=== PATIENT | male | born 2000 | race Two or more races ===

== ENCOUNTER 2020-02-03 10:01 | Emergency (ER) | payer OTHER ==
[2020-02-03 10:17] VITALS: BP 145/93; PULSE 130
[2020-02-03] MEDS ORDERED: Penicillin G Benzathine 1,200,000 Units/2 ML Syringe IM ONE (10:30)
--- NOTE | 2020-02-04 01:59 | EDM.PDOC ---
ED HPI GENERAL MEDICAL PROBLEM - General Chief Complaint: General Stated Complaint: POSSIBLE STREP THROAT Time Seen by Provider: 02/03/20 10:15 Source of Information: Reports: Patient History Limitations: Reports: No Limitations - History of Present Illness INITIAL COMMENTS - FREE TEXT/NARRATIVE: Pt. presents to ER with complaints of severe sore throat for 2 days. He has been experiencing fever and chills. He states that he has frequent problems with pharyngitis and has been advised to have tonsillectomy. Denies any problems breathing, swallowing, or managing his secretions. No cough or sinus congestion. Pt. denies any nausea, vomiting, or diarrhea. No bloody stools. Denies any ear pain. he states that his tonsils are enlarged, erythematous with exudates and are almost touching. Onset Date: 02/01/20 Location: Reports: Neck Quality: Reports: Ache, Sharp Severity: Moderate Associated Symptoms: Reports: Fever/Chills, Loss of Appetite, Malaise, Nausea/ Vomiting. Denies: Cough, cough w sputum Throat Pain Score (Numeric/FACES): 6 - Related Data Allergies Allergy/AdvReac Type Severity Reaction Status Date / Time No Known Allergies Allergy Verified 02/03/20 10:13 Home Meds: Home Meds Albuterol [Ventolin HFA] 2 puff INH Q4H PRN 12/04/16 [History] Past Medical History - Past Health History Medical/Surgical History: Denies Medical/Surgical History Respiratory History: Reports: Asthma - Past Surgical History HEENT Surgical History: Reports: Oral Surgery Social & Family History - Tobacco Use Smoking Status *Q: Never Smoker ED ROS GENERAL - Review of Systems Review Of Systems: See Below Constitutional: Reports: No Symptoms HEENT: Reports: Throat Pain, Throat Swelling Respiratory: Reports: No Symptoms Cardiovascular: Reports: No Symptoms Endocrine: Reports: No Symptoms GI/Abdominal: Reports: No Symptoms : Reports: No Symptoms Musculoskeletal: Reports: No Symptoms Skin: Reports: Pallor Neurological: Reports: No Symptoms Psychiatric: Reports: No Symptoms Hematologic/Lymphatic: Reports: No Symptoms Immunologic: Reports: No Symptoms ED EXAM, GENERAL - Physical Exam Exam: See Below Exam Limited By: No Limitations General Appearance: Alert, WD/WN, No Apparent Distress Nose: Normal Inspection, Normal Mucosa, No Blood Throat/Mouth: Normal Teeth, Normal Voice, No Airway Compromise, Inflammation Head: Atraumatic Neck: Lymphadenopathy (L), Lymphadenopathy (R) Respiratory/Chest: No Respiratory Distress, Lungs Clear, Normal Breath Sounds, No Accessory Muscle Use, Chest Non-Tender Cardiovascular: Normal Peripheral Pulses, Regular Rate, Rhythm, No Edema, No Gallop, No JVD, No Murmur Peripheral Pulses: 4+: Radial (L) GI/Abdominal: Normal Bowel Sounds, Soft, Non-Tender, No Organomegaly, No Distention, No Abnormal Bruit, No Mass (Male) Exam: Deferred Rectal (Males) Exam: Deferred Back Exam: Normal Inspection, Full Range of Motion Extremities: Normal Inspection, Normal Range of Motion, Non-Tender, No Pedal Edema, Normal Capillary Refill Neurological: Alert, Oriented, CN II-XII Intact, Normal Cognition, Normal Gait, Normal Reflexes, No Motor/Sensory Deficits Psychiatric: Normal Affect, Normal Mood Skin Exam: Warm, Dry, Intact, Normal Color, No Rash Lymphatic: Adenopathy Course - Vital Signs Last Recorded V/S: Last Vital Signs Temp 37.2 C 02/03/20 10:05 Pulse 130 H 02/03/20 10:05 Resp 18 02/03/20 10:05 BP 145/93 H 02/03/20 10:05 Pulse Ox 95 02/03/20 10:05 - Orders/Labs/Meds Meds: Medications Discontinued Medications Generic Name Dose Route Start Last Admin Trade Name Daeq PRN Reason Stop Dose Admin Penicillin G Benzathine 1.2 millunits 02/03/20 10:30 02/03/20 10:39 Bicillin L-A IM 02/03/20 10:31 1.2 millunits ONETIME ONE Administration Departure - Departure Time of Disposition: 11:10 Disposition: Home, Self-Care 01 Clinical Impression: Pharyngitis - Discharge Information Instructions: Amoxicillin capsules or tablets, Sepsis, Adult, Pharyngitis, Easy -to-Read, Probiotics Referrals: PCP,None [Primary Care Provider] - Forms: ED Department Discharge Additional Instructions: Amoxicillin 875mg 1 twice daily for 10 days Drink more fluids. At least 10-12 large glasses a day while you are sick. Ibuprofen 200mg 3 tabs every 6-8 hours as needed for discomfort/fever Recheck in clinic in 10-14 days. You really need to have your tonsils removed, or you are going to have problems with this into adulthood. Sepsis Event Note - Evaluation Sepsis Screening Result: No Definite Risk - Problem List Review Problem List Initiated/Reviewed/Updated: Yes - Assessment/Plan Plan: Amoxicillin 875mg 1 twice daily for 10 days Drink more fluids. At least 10-12 large glasses a day while you are sick. Ibuprofen 200mg 3 tabs every 6-8 hours as needed for discomfort/fever Recheck in clinic in 10-14 days. You really need to have your tonsils removed, or you are going to have problems with this into adulthood.
== END 2020-02-03 11:10 | disposition home or self-care (01) ==
LOC: VM.ED 10:01
DX: J02.9 Acute pharyngitis, unspecified (principal); J45.909 Unspecified asthma, uncomplicated
CPT/HCPCS: 87880-QW; 96372; 99283; 99283-GF; J0561